=== PATIENT | female | born 1975 | race Two or more races ===

== ENCOUNTER 2022-03-31 14:07 | Emergency (ER) | payer MEDICAID ==
[~2022-03-31] VITALS: Ht 165.1 cm; Wt 77.6 kg
[2022-03-31 14:39] VITALS: BP 146/83
[2022-03-31] MEDS ORDERED: KETOROLAC TROMETH 60MG/2ML VIAL IM ONE (17:45)
[2022-03-31] MEDS ORDERED: HYDR-4902 PO (18:35)
[2022-03-31] MEDS ORDERED: PRED20TA2 PO (18:35)
== END 2022-03-31 18:54 | disposition home or self-care (01) ==
LOC: ER 14:07
DX: M17.12 Unilateral primary osteoarthritis, left knee (principal); M25.462 Effusion, left knee; I10 Essential (primary) hypertension; E78.5 Hyperlipidemia, unspecified; Z79.899 Other long term (current) drug therapy
CPT/HCPCS: 73562; 96372; 99283; J1885

== ENCOUNTER 2022-06-17 00:38 | Emergency (ER) | payer MEDICAID ==
[~2022-06-17] VITALS: Ht 165.1 cm; Wt 75.0 kg
[~2022-06-17 00:38] MED LIST: HYDR-4902 PO; PRED20TA2 PO
[2022-06-17 01:31] VITALS: BP 138/83
== END 2022-06-17 05:46 | disposition home or self-care (01) ==
LOC: ER 00:38
DX: J10.1 Influenza due to other identified influenza virus with other respiratory manifestations (principal); R05.9 Cough, unspecified; R50.9 Fever, unspecified; R06.02 Shortness of breath; R53.1 Weakness; I10 Essential (primary) hypertension; E78.5 Hyperlipidemia, unspecified; Z79.899 Other long term (current) drug therapy; Z20.822 Contact with and (suspected) exposure to COVID-19
CPT/HCPCS: 36415; 87426; 87804

== ENCOUNTER 2022-09-26 11:53 | Emergency (ER) | payer MEDICAID, OTHER ==
[~2022-09-26] VITALS: Ht 162.6 cm; Wt 79.3 kg
[2022-09-26 12:52] LABS: Eosinophils # (auto) 0.3 10 ^3/uL (0-0.8); Hemoglobin 11.2 g/dL (12.2-16.2); White Blood Cell 7.3 10^3/uL (4.4-10.8)
[2022-09-26 12:54] LABS: Basophils # (auto) 0 10 ^3/uL (0-0.2); Basophils % (auto) 0.3 % (0.0-2.0); Eosinophils % (auto) 3.7 % (0.0-7.0); Hematocrit 33.8 % (36.0-46.0); Lymphocytes # (auto) 0.9 10 ^3/uL (0.4-5.4); Lymphocytes % (auto) 12.7 % (10.0-50.0); Mean Corpuscular Hgb Conc. 33.3 g/dL (32.0-36.0); Mean Corpuscular Volume 81.1 fL (80.0-100.0); Monocytes # (auto) 0.5 10 ^3/uL (0-1.3); Monocytes % (auto) 6.4 % (0.0-12.0); Neutrophils # (auto) 5.6 10 ^3/uL (1.6-8.6); Neutrophils % (auto) 76.9 % (37.0-80.0); Red Blood Cells 4.16 10^6/uL (4.0-5.20); Red Cell Distribution Width 17.5 % (11.8-14.3)
[2022-09-26 13:06] LABS: Albumin 2.4 g/dL (3.4-5.0); BUN/Creatinine Ratio 16.7; Calcium 8.3 mg/dL (8.5-10.1); Potassium 3.1 mmol/L (3.5-5.1)
[2022-09-26 13:09] LABS: Bilirubin, Total 0.5 mg/dL (0.2-1.0); Total Protein 7.4 g/dL (6.4-8.2)
[2022-09-26 13:31] VITALS: BP 150/90
[2022-09-26] MEDS ORDERED: KETOROLAC TROMETH 60MG/2ML VIAL IM ONE (13:45)
[2022-09-26] MEDS ORDERED: DexAMETHasone SOD PHOS 10MG/1ML VIAL INJ IM ONE (13:45)
[2022-09-26] MEDS ORDERED: POTASSIUM EFFERVESENT TAB 25 MEQ GT ONE (14:15)
[2022-09-26] MEDS ORDERED: POTA10TA51 PO (16:49)
[2022-09-26] MEDS ORDERED: AMLO-496 PO (16:49)
[2022-09-26] MEDS ORDERED: PERCOT PO (16:49)
[2022-09-26] MEDS ORDERED: DOCU-94 PO (16:49)
== END 2022-09-26 16:55 | disposition home or self-care (01) ==
LOC: ER 11:53
DX: M06.9 Rheumatoid arthritis, unspecified (principal); E87.6 Hypokalemia; D64.9 Anemia, unspecified; E87.1 Hypo-osmolality and hyponatremia; I10 Essential (primary) hypertension; E78.5 Hyperlipidemia, unspecified; Z79.899 Other long term (current) drug therapy
CPT/HCPCS: 36415; 80053; 84484; 85025; 93005; 96372; 99284; J1100; J1885

== ENCOUNTER 2025-02-11 16:13 | Emergency (ER) | payer OTHER ==
[~2025-02-11] VITALS: Ht 167.6 cm; Wt 80.5 kg
[~2025-02-11 16:13] MED LIST changes: +AMLO1TAB23 PO; +DOCU-94 PO; +PERCOT PO; +POTA-36 PO
--- NOTE | 2025-02-11 16:34 | ED.PDOC ---
Back pain HPI HPI Comments 49 y/o F, with PMHx of arthritis, HTN, and HLD presents to the ED for CC of body pain. Patient states, she has been experiencing generalized body pain with associated extremity swelling [id number]. Patient reports, additional symptoms of inability to sleep. Patient comments, that she currently does not have a PCP which she can follow up with. Patient denies lifting, bending, trauma, or fall. No other associated symptoms, modifiers, recent injuries or sick contacts present at this time. Chief Complaint: Body Pain Time Seen by MD: 16:28 Primary Care Provider: Levon Reviewed Notes: Nurses Notes, Medications, Allergies Allergies: Coded Allergies: NO KNOWN ALLERGIES (Unverified , 03/31/22) Home Meds Active Scripts Potassium Chloride (POTASSIUM CHLORIDE CR) 10 Meq Tb, 1 TAB PO DAILY, #20 TAB 0 Refills Prov:YORDY ALONSO PAC 09/26/22 Docusate Sodium (Colace) 100 Mg Cap, 1 CAP PO BID, #30 CAP Prov:YORDY ALONSO PAC 09/26/22 Amlodipine Besylate (Amlodipine Besylate) 10 Mg Tab, 1 TAB PO DAILY, #30 TAB 0 Refills Prov:YORDY ALONSO 09/26/22 Oxycodone W/ Acetaminophen (Percocet 5/325MG) 1 Tab Tb, 1 TAB PO QID, #20 TAB Prov:YORDY ALONSO PAC 09/26/22 Hydrocodone-Acetaminophen (Hydrocodone Bitartrate/AC 5-325 mg) 1 Tab Tab, 1 TAB PO TID, #20 TAB Prov:TAYLOR WADE 03/31/22 Prednisone (Prednisone) 20 Mg Tab, 40 MG PO DAILY, #20 MG Prov:TAYLOR WADE 03/31/22 Information Source: Patient Mode of Arrival: Ambulatory Timing: Months Duration: Since onset Severity: Moderate Prehospital treatment: None Onset: Spontaneous History of: Arthritis Modifying Factors: Nothing Associated signs and symptoms: None Past Medical History PAST MEDICAL HISTORY: Arthritis, High Lipids, HTN 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 Family History Family History: Reviewed,noncontributory to illness Social History Smoker: Non-Smoker Alcohol: Denies ETOH Use Drugs: Denies Drug Use Lives In: Home Constitutional: denies: chills, diaphoresis, fatigue, fever, malaise, sweats, weakness, others EENTM: denies: blurred vision, double vision, ear bleeding, ear discharge, ear drainage, ear pain, ear ringing, eye pain, eye redness, hearing loss, mouth pain, mouth swelling, nasal discharge, nose bleeding, nose congestion, nose pain, photophobia, tearing, throat pain, throat swelling, voice changes, others Respiratory: denies: cough, hemoptysis, orthopnea, SOB at rest, shortness of breath, SOB with excertion, stridor, wheezing, others Cardiovascular: denies: chest pain, dizzy spells, diaphoresis, Dyspnea on exer tion, edema, irregular heart beat, left arm pain, lightheadedness, palpitations, PND, syncope, others Gastrointestinal: denies: abdomen distended, abdominal pain, blood streaked bowels, constipated, diarrhea, dysphagia, difficulty swallowing, hematemesis, melena, nausea, poor appetite, poor fluid intake, rectal bleeding, rectal pain, vomiting, others Genitourinary: denies: abnormal vagina bleeding, burning, dyspareunia, dysuria, flank pain, frequency, hematuria, incontinence, pain, , vagina discharge, urgency, others Neurological: denies: dizziness, fainting, headache, left sided numbness, left sided weakness, numbness, paresthesia, pre-existing deficit, right sided numbness, right sided weakness, seizure, speech problems, tingling, tremors, weakness, others Musculoskeletal: reports: others (BODY PAIN); denies: back pain, gout, joint pain, joint swelling, muscle pain, muscle stiffness, neck pain Integumetry: denies: bruises, change in color, change in hair/nails, dryness, laceration, lesions, lumps, rash, wounds, others Allergic/Immunocompromised: denies: Difficulty Healing, Frequent Infections, Hives, Itching, others Hematologic/Lymphatic: denies: anemia, blood clots, easy bleeding, easy bruising, swollen glands, others Endocrine: denies: excessive hunger, excessive sweating, excessive thirst, excessive urination, flushing, intolerance to cold, intolerance to heat, unexplained weight gain, unexplained weight loss, others Psychiatric: denies: anxiety, bipolar disorder, depression, hopeless, panic disorder, schizophrenia, sleepless, suicidal, others All Other Systems: Reviewed and Negative Physical Exam General Appearance: No Apparent Distress, Normal HEENT: Normal ENT Inspection, Pharynx Normal Neck: Full Range of Motion, Non-Tender, Normal, Normal Inspection Respiratory: Chest Non-Tender, Lungs Clear, No Accessory Muscle Use, No Respiratory Distress, Normal Breath Sounds Cardiovascular: No Edema, No Murmur, No Gallop, Normal Peripheral Pulses, Regular Rate/Rhythm Breast Exam: Deferred Gastrointestinal: No Organomegaly, Non Tender, No Pulsatile Mass, Normal Bowel Sounds, Soft Genitalia: Deferred Pelvic: Deferred Rectal: Deferred Extremities: No calf tenderness, Normal capillary refill, Normal inspection, Normal range of motion, Non-tender, No pedal edema Musculoskeletal : Location: Right Extremity Location: Hand Apperance: Swelling (BETWEEN MCP OF THE 2ND AND 3RD DIGITS) Neurologic: Alert, audiovisual lead technician II-XII nml as Tested, No Motor Deficits, Normal Affect, Normal Mood, No Sensory Deficits Cerebellar Function: Normal Reflexes: Normal Skin: Dry, Normal Color, Warm Lymphatic: No Adenopathy Was a procedure done? Was a procedure done?: No Back Pain Differential Dx Differential Diagnosis: Musculoskeletal Pain, Other (R.A FLARE UP) X-Ray, Labs, Meds, VS Vital Signs Date Time Temp Pulse Resp B/P (MAP) Pulse Ox O2 Delivery O2 Flow Rate FiO2 02/11/25 19:25 98.7 88 17 149/83 (105) 98 98.7 02/11/25 16:27 98.9 100 20 156/84 (108) 97 98.9 Lab Test 02/11/25 19:41 02/11/25 17:02 Range/Units Urine Color Pending Urine Clarity Pending Urine pH Pending Urine Specific Pfeifer Pending Urine Protein Pending Urine Ketones Pending Urine Blood Pending Urine Nitrite Pending Urine Bilirubin Pending Urine Urobilinogen Pending Urine Leukocyte Esterase Pending Urine RBC Pending Urine Microscopic WBC Pending Urine Squamous Epithelial Cells Pending Urine Bacteria Pending Urine Glucose Pending White Blood Count 8.2 4.4-10.8 10^3/uL Red Blood Count 4.39 4.0-5.20 10^6/uL Hemoglobin 11.3 L 12.2-16.2 g/dL Hematocrit 34.4 L 36.0-46.0 % Mean Corpuscular Volume 78.3 L 80.0-100.0 fL Mean Corpuscular Hemoglobin 25.8 L 28.0-32.0 pg Mean Corpuscular Hemoglobin Concent 33.0 32.0-36.0 g/dL Red Cell Distribution Width 16.5 H 11.8-14.3 % Platelet Count 476 H 140-450 10^3/uL Mean Platelet Volume 7.3 6.9-10.8 fL Neutrophils (%) (Auto) 66.4 37.0-80.0 % Lymphocytes (%) (Auto) 24.1 10.0-50.0 % Monocytes (%) (Auto) 6.5 0.0-12.0 % Eosinophils (%) (Auto) 2.5 0.0-7.0 % Basophils (%) (Auto) 0.5 0.0-2.0 % Neutrophils # (Auto) 5.4 1.6-8.6 10 ^3/uL Lymphocytes # (Auto) 2.0 0.4-5.4 10 ^3/uL Monocytes # (Auto) 0.5 0-1.3 10 ^3/uL Eosinophils # (Auto) 0.2 0-0.8 10 ^3/uL Basophils # (Auto) 0 0-0.2 10 ^3/uL Nucleated Red Blood Cells 0.0 % Erythrocyte Sedimentation Rate 97 H 0-20 mm/hr Sodium Level 137 136-145 mmol/L Potassium Level 4.5 3.5-5.1 mmol/L Chloride Level 103 98-107 mmol/L Carbon Dioxide Level 26 20-31 mmol/L Anion Gap 8 5-15 Blood Urea Nitrogen 21 9-23 mg/dL Creatinine 0.79 0.550-1.02 mg/dL Glomerular Filtration Rate Calc 91 >90 mL/min BUN/Creatinine Ratio 26.6 H 10.0-20.0 Serum Glucose 105 74-106 mg/dL Calcium Level 10.0 8.7-10.4 mg/dL Total Bilirubin 0.5 0.2-1.0 mg/dL Aspartate Amino Transferase (AST) 18 13-40 U/L Alanine Aminotransferase (ALT) 12 7-40 U/L Alkaline Phosphatase 80 46-116 U/L C-Reactive Protein High Sensitivity 6.89 H <1.0 mg/dL Total Protein 8.3 H 5.7-8.2 g/dL Albumin 4.1 3.2-4.8 g/dL X-Ray, Labs, Meds, VS Comment Imaging: X-rays and CT scans were reviewed and interpreted by this provider, imaging shows no fractures and no pathological disease. Pending radiology review. Laboratory: Labs reviewed and interpreted by this provider. Elevated C-reactive protein elevated ESR, consistent with rheumatoid arthritis flare-up Patient has prior medical visits reviewed. Med reconciliation performed Vital signs reviewed Time of 1ST Reevaluation: 16:58 Reevaluation 1ST: Unchanged Patient Education/Counseling: Diagnosis, Treatment, Need For Follow Up (Follow up with PCP next available appointment.) Family Education/Counseling: No Family Present SEPSIS Sepsis Screen Physician Orders Urinalysis (02/11/25 16:30) Ketorolac Injection (Toradol Injection) (02/11/25 19:45) Methylprednisolone Sod Succ (Solu Medrol (02/11/25 19:45) Vital Signs Date Time Temp Pulse Resp B/P (MAP) Pulse Ox O2 Delivery O2 Flow Rate FiO2 02/11/25 19:25 98.7 88 17 149/83 (105) 98 98.7 02/11/25 16:27 98.9 100 20 156/84 (108) 97 98.9 Laboratory Tests Test 02/11/25 17:02 White Blood Count 8.2 10^3/uL (4.4-10.8) Departure 1 Departure Time of Disposition: 19:42 Impression: Primary Impression: Rheumatoid arthritis Qualified Codes: M06.9 - Rheumatoid arthritis, unspecified Disposition: 01 HOME / SELF CARE / HOMELESS Condition: Fair e-Prescriptions Diclofenac Potassium (Diclofenac Potassium) 50 Mg Tab 1 TAB PO BID, #60 TAB 1 Refill Prov: PADMAJA MACKAY 02/11/25 Methylprednisolone (Medrol Dosepak) 4 Mg Jb 4 MG PO UD, #21 TAB UAD Prov: PADMAJA MACKAY 02/11/25 Discharged With: Self Critical Care Note Critical Care Time?: No Stability Stability form required: No Heart Score Heart Score: Heart Score Response (Comments) Value History N/A 0 EKG N/A 0 Age N/A 0 Risk Factors N/A 0 Troponin N/A 0 Total 0 I personally scribed for PADMAJA MACKAY ([email or web address]) on 02/11/25 at 16:34. Electronically submitted by Socorro Sosa ([email or web address]). PADMAJA MACKAY [facility] Feb 11, 2025 16:34
[2025-02-11 17:16] LABS: Hemoglobin 11.3 g/dL (12.2-16.2)
[2025-02-11 17:18] LABS: Hematocrit 34.4 % (36.0-46.0); Mean Corpuscular Hemoglobin 25.8 pg (28.0-32.0); Mean Corpuscular Volume 78.3 fL (80.0-100.0); Nucleated Red Blood Cells % 0.0 %
[2025-02-11 17:40] LABS: Alanine Aminotransferase 12 U/L (7-40); Albumin 4.1 g/dL (3.2-4.8); Alkaline Phosphatase 80 U/L (46-116); Anion Gap 8 (5-15); BUN/Creatinine Ratio 26.6 (10.0-20.0); Bilirubin, Total 0.5 mg/dL (0.2-1.0); Blood Urea Nitrogen 21 mg/dL (9-23); Calcium 10.0 mg/dL (8.7-10.4); Carbon Dioxide 26 mmol/L (20-31); Chloride 103 mmol/L (98-107); Glucose 105 mg/dL (74-106); Potassium 4.5 mmol/L (3.5-5.1); Sodium 137 mmol/L (136-145); Total Protein 8.3 g/dL (5.7-8.2)
[2025-02-11] MEDS ORDERED: DICL50TA2 PO (19:43)
[2025-02-11] MEDS ORDERED: METH4PAK PO (19:43)
[2025-02-11 19:53] LABS: Urine Amorphous Crystal FEW /hpf (None Seen); Urine Protein, UAD Negative (Negative)
[2025-02-11] MEDS: KETOROLAC TROMETH 30 MG/ML 1ML VIAL IM ONE (20:20)
[2025-02-11] MEDS: methylPREDNISolone SOD SUCC 125 MG/2 ML VL IM ONE (20:20)
[2025-02-11 20:34] VITALS: BP 154/94; PULSE 100; RESP 20; TEMP 97.5; O2SAT 97
== END 2025-02-11 20:36 | disposition home or self-care (01) ==
LOC: ER 16:13
DX: M06.9 Rheumatoid arthritis, unspecified (principal); E78.5 Hyperlipidemia, unspecified; I10 Essential (primary) hypertension; Z98.890 Other specified postprocedural states; Z79.899 Other long term (current) drug therapy; Z79.52 Long term (current) use of systemic steroids
CPT/HCPCS: 36415; 80053; 81001; 85025; 85652; 86141; 96372; 99284; J1885; J2919